=== PATIENT | female | born 1970 | race Caucasian/White ===

== ENCOUNTER 2021-07-14 09:18 | Outpatient (RCR) | payer MEDICAID, SELFPAY ==
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
--- NOTE | 2021-07-21 08:53 | HP.OTFCE.D ---
FCE D/C Summary - Discharge [facility] was seen for a one time visit for an FCE on 07/14/21 and is discharged.
== END 2021-07-14 19:00 | disposition home or self-care (01) ==
LOC: OT 09:18
PROVIDERS: PCP Internal Medicine; Referring Provider Internal Medicine; Visit Provider Internal Medicine
DX: M54.50 Low back pain, unspecified (principal)
CPT/HCPCS: 97750